=== PATIENT | female | born 1965 | race Caucasian/White ===

== ENCOUNTER 2021-07-11 13:49 | Emergency (ER) | payer OTHER ==
[~2021-07-11] VITALS: Ht 185.4 cm; Wt 90.1 kg
[2021-07-11 14:22] VITALS: BP 139/82
[2021-07-11] MEDS ORDERED: IBUPROFEN 600 MG TABLET. PO ONE (14:45)
--- NOTE | 2021-07-11 15:18 | RAD ---
Left wrist 3 views. HISTORY: Pain and swelling after a fall 3 views were taken of the left wrist. There is a comminuted fracture of the distal radius. There is a fracture the ulnar styloid. There is impaction of the radius fracture especially dorsally with angul ation. IMPRESSION: 1. Comminuted fracture distal radius and fracture ulnar styloid. Electronically signed by: Reynaldo Moreno MD (07/11/2021 3:16 PM) [facility]
--- NOTE | 2021-07-11 15:19 | PHYS DOC ---
Past History Past Surgical History: No Surgical History Alcohol Use: Occasionally General Adult EDM: Chief Complaint: UPPER EXTREMITY INJURY HPI: HPI: Patient is a 55-year-old female presents after a fall down her stairs last night. Patient is reporting left, wrist pain and swelling. Denies taking anything at home for pain. Radial pulses are intact. Cap refill less than 2 seconds. Review of Systems: Review of Systems: ROS At least 10 ROS systems have been reviewed and are negative except as documented in the HPI. General: Negative except as outlined in HPI above. Skin: Negative except as outlined in HPI above. HEENT: Negative except as outlined in HPI above. Neck: Negative except as outlined in HPI above. Respiratory: Negative except as outlined in HPI above.. Cardiovascular: Negative except as outlined in HPI above. Abdomen: Negative except as outlined in HPI above. : Negative except as outlined in HPI above. Back/MSK: Negative except as outlined in HPI above. Neuro: Negative except as outlined in HPI above. Psych: Negative except as outlined in HPI above. Current Medications: Current Meds: Current Medications Medications (Trade) Dose Ordered Sig/Jaxon Start Time Stop Time Status Last Admin Dose Admin Ibuprofen (Motrin) 600 mg 1X ONCE 07/11/21 14:45 07/11/21 14:46 DC 07/11/21 14:45 600 MG Allergies: Allergies: Allergies Coded Allergies Type Severity Reaction Last Updated Verified No Known Drug Allergies 07/11/21 No Physical Exam: PE: Constitutional: Well developed, well nourished, no acute distress, non-toxic appearance. [] HENT: bilateral external ears normal, oropharynx moist, no oral exudates, nose normal. [] Eyes: PERRLA, conjunctiva normal, no discharge. [] Neck: Normal range of motion, no tenderness, supple Cardiovascular:Heart rate regular rhythm, no murmur [] Lungs & Thorax: Bilateral breath sounds clear to auscultation [] Abdomen: Bowel sounds normal, soft, no tenderness, no masses Skin: Warm, dry, swelling to left wrist Back: No tenderness, no CVA tenderness. [] Extremities: Left wrist swelling, pain, no cyanosis, ROM intact, radial pulses intact, cap refill less than 2 seconds Neurologic: Alert and oriented X 3, normal motor function, normal sensory function, no focal deficits noted. [] Psychologic: Affect normal, judgement normal, mood normal. [] Current Patient Data: Vital Signs: Vital Signs Date Time Temp Pulse Resp B/P (MAP) Pulse Ox O2 Delivery O2 Flow Rate FiO2 07/11/21 14:22 98.4 74 18 139/82 (101) 100 Room Air EKG: EKG: [] Radiology/Procedures: Radiology/Procedures: []Left wrist 3 views. HISTORY: Pain and swelling after a fall 3 views were taken of the left wrist. There is a comminuted fracture of the distal radius. There is a fracture the ulnar styloid. There is impaction of the radius fracture especially dorsally with angulation. IMPRESSION: 1. Comminuted fracture distal radius and fracture ulnar styloid. Electronically signed by: Reynaldo Moreno MD (07/11/2021 3:16 PM) [facility] Heart Score: C/O Chest Pain: No Risk Factors: Risk Factors: DM, Current or recent (<one month) smoker, HTN, HLP, family history of CAD, obesity. Risk Scores: Score 0 - 3: 2.5% MACE over next 6 weeks - Discharge Home Score 4 - 6: 20.3% MACE over next 6 weeks - Admit for Clinical Observation Score 7 - 10: 72.7% MACE over next 6 weeks - Early Invasive Strategies Course & Med Decision Making: Course & Med Decision Making Pertinent Labs and Imaging studies reviewed. (See chart for details) [] 55-year-old female presents after a fall last night. Patient tripped over her dog while going down the stairs.Rating pain 8/10. Pain treated while in the ER. Left wrist x-ray obtained. Radial pulses intact. Cap refill less than 2 seconds. X-ray shows Comminuted fracture distal radius and fracture ulnar styloid. Spoke with Dr. Nielsen from [facility]. Suggested a volar splint be placed and follow-up next week. Patient given referral for orthopedics. Advised patient to call today and make an appointment for next week. Educated on RICE. Discussed return precautions with patient. Ibuprofen at home for pain. I am also sending patient home with pain medication until she can make a follow-up with orthopedics. Patient verbalizes understanding of discharge instructions and return precautions. Dragon Disclaimer: Dragon Disclaimer: This electronic medical record was generated, in whole or in part, using a voice recognition dictation system. Departure Departure: Impression: Primary Impression: Fracture of styloid process of left ulna Qualified Codes: S52.615A - Nondisplaced fracture of left ulna styloid process, initial encounter for closed fracture Disposition: HOME / SELF CARE / HOMELESS Condition: STABLE Referrals: PCP,NO (PCP) Patient Instructions: Wrist Fracture Additional Instructions: Rest, ice, elevate. Please call [facility] office on Wednesday to make a follow-up appointment. I am sending you home with pain medication as well and taken follow-up with orthopedics. Please return to the emergency room if you have worsening symptoms or concerns. [facility] [phone] EMERGENCY DEPARTMENT GENERAL DISCHARGE INSTRUCTIONS Thank you for coming to [facility] (ED) today and trusting us with you care. We trust that you had a positivie experience in our Emergency Department. If you wish to speak to the department management, you may call the director at [phone]. YOUR FOLLOW UP INSTRUCTIONS ARE FOLLOWS: 1. Do you have a private Doctor? If you do not have a private doctor, please ask for a resource list of physicians or clinics that may be able to assist you with follow up care. 2. The Emergency Physician has interpreted your x-rays. The X-Ray specialist will also review them. If there is a change in the findings, you will be notified in 48 hours when at all possible. 3. A lab test or culture has been done, your results will be reviewed and you will be notified if you need a change in treatment. ADDITIONAL INSTRUCTIONS AND INFORMATION: 1. Your care today has been supervised by a physician who is specially trained in emergency care. Many problems require more than one evaluation for a complete diagnosis and treatment. We recommend that you schedule your follow up appointment as recommended to ensure complete treatment of you illness or injury. If you are unable to obtain follow up care and continue to have a problem, or if your condition worsens, we recommend that you return to the ED. 2. We are not able to safely determine your condition over the phone nor are we able to give sound medical advice over the phone. For these safety reasons, if you call for medical advice we will ask you to come to the ED for further evaluation. 3. If you have any questions regarding these discharge instructions please call the ED at [phone]. SAFETY INFORMATION: In the interest of safety, wellness, and injury prevention; we encourage you to wear your sealbelt, if you smoke; quite smoking, and we encourage family to use a protective helmet for bicycling and other sporting events that present an increased risk for head injury. IF YOUR SYMPTOMS WORSEN OR NEW SYMPTOMS DEVELOP, OR YOU HAVE CONCERNS ABOUT YOUR CONDITION; OR IF YOUR CONDITION WORSENS WHILE YOU ARE WAITING FOR YOUR FOLLOW UP APPOINTMENT; EITHER CONTACT YOUR PRIMARY CARE DOCTOR, THE PHYSICIAN WHOSE NAME AND NUMBER YOU WERE GIVEN, OR RETURN TO THE ED IMMEDIATELY. Scripts Hydrocodone Bit/Acetaminophen (HYDROCODONE-APAP 5-325 ) 1 Each Tablet 1-2 TAB PO PRN Q6HRS PRN for PAIN for 3 Days, #20 TAB 0 Refills Prov: PAM LOPEZ APRN 07/11/21 PAM LOPEZ APRN Jul 11, 2021 15:19
[2021-07-11] MEDS ORDERED: HYDR-2155 PO (16:21)
== END 2021-07-11 16:47 | disposition home or self-care (01) ==
LOC: ER 13:49
DX: S52.615A Nondisplaced fracture of left ulna styloid process, initial encounter for closed fracture (principal); W10.8XXA Fall (on) (from) other stairs and steps, initial encounter; Y93.89 Activity, other specified; Y92.89 Other specified places as the place of occurrence of the external cause; Y99.8 Other external cause status
CPT/HCPCS: 29125; 73110; 99284